=== PATIENT | female | born 1950 | race Caucasian/White ===

== ENCOUNTER 2018-11-14 17:11 | Emergency (ER) | payer MEDICARE ==
[~2018-11-14] VITALS: Ht 162.6 cm; Wt 83.9 kg
--- OUTSIDE RECORDS SUMMARY | 2018-11-14 17:14 | XMS REPORT | Summary of Care ---
Author Author Zach Rubio, Gre[facility] Organization Unknown Address Unknown Phone Unavailable Care Team Providers Care Shirt Trimmer Name Role Phone EVER NUNN M.D. Unavailable Unavailable REYMUNDO DAVE, FRANCESCO SIMMS Unavailable Unavailable EDOUARD ARREDONDO, EVER Unavailable Unavailable Unavailable Unavailable Functional Status Name Dates Details Functional status health issues are not documented Status: Name Dates Details Cognitive status health issues are not documented Status: Problems Name Dates Details Intractable migraine with aura with status migrainosus (346.03, G43.111) Status: Active Classic migraine with aura (346.00, G43.109) Status: Active Medications Name Dates Details SUMAtriptan Succinate 50 MG Oral Tablet TAKE 1 TABLET Twice daily 2-4 hours apart as needed for migraine Quantity: 9 EVER NUNN M.D. * Start : 31-Jul-2016 Active Topiramate 25 MG Oral Tablet TAKE 1 TABLET Daily for 2 weeks then 1 pill twice a day. * Quantity: 180 Refills: 3 EVER NUNN M.D. * Start : 30-Aug-2018 Active Albuterol 90 MCG/ACT AERS INHALE 1 TO 2 PUFFS EVERY 4 TO 6 HOURS NEEDED AND DIRECTED. * Refills: 0 Active Calcium 600 MG Oral Tablet TAKE 1 TABLET DAILY. * Refills: 0 Active Cyanocobalamin 1000 MCG/ML Injection Solution 1ML INTRAMUSCULARLY DAILY X5 DAYS, THEN ONCE EVERY MONTH * Quantity: 10 Refills: 5 Active Garlic CAPS * Refills: 0 Active Levothyroxine Sodium 75 MCG Oral Tablet * Refills: 0 Active Levothyroxine Sodium 75 MCG Oral Tablet TAKE 1 TABLET DAILY. * Refills: 0 Active Propranolol HCl - 40 MG Oral Tablet TAKES TWO TABLET DAILY * Refills: 0 Active Sertraline HCl - 100 MG Oral Tablet TAKE 1 TABLET BY MOUTH DAILY * Quantity: 30 Refills: 3 Active Simvastatin 20 MG Oral Tablet TAKE 1 TABLET DAILY DIRECTED. * Refills: 0 Active 30 Tablet Bottle LORazepam 1 MG Oral Tablet TAKE 1 TABLET Once 30 minutes prior to MR!, may repeat times 1 if needed for sed ation * Quantity: 2 Refills: 0 EVER NUNN M.D. 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) Status: Resolved Procedures Procedure Dates Details History of Section Completed History of Hysterectomy Completed History of Rotator Cuff Repair Completed History of Bladder Surgery Completed Immunization Name Dates Details Immunizations not documented Family History Name Dates Details Family history of heart murmur (V17.49, Z82.49) Comments: Family History Status: Active Family history of cerebrovascular accident (CVA) (V17.1, Z82.3) Comments: Family History Status: Active Family history of cardiac disorder (V17.49, Z82.49) Comments: Family History Status: Active Name Dates Details Family history of migraine headaches (V17.2, Z82.0) Status: Active Family history of irritable bowel syndrome (V18.59, Z83.79) Status: Active Family history of Status: Active Family history of congestive heart failure (V17.49, Z82.49) Status: Active Name Dates Details Family history of Status: Active Family history of diabetes mellitus (V18.0, Z83.3) Status: Active Family history of Heart problem (429.9, I51.9) Status: Active Name Dates Details Family history of diabetes mellitus (V18.0, Z83.3) Status: Active Family history of Heart problem (429.9, I51.9) Status: Active Name Dates Details Family history of Heart problem (429.9, I51.9) Status: Active Family history of hypertension (V17.49, Z82.49) Status: Active Social History Name Dates Details - Status: Name Dates Details Former smoker Vital Signs Date Test Result Details No Known Vitals to report Results Date Description Value Details Results not documented Plan of Care Name Dates Details Planned Observations Planned Goals not documented Interventions Provided Medication Changes* Topiramate 25 MG Oral Tablet - Renew Instructions Name Dates Details Instructions not documented Encounters Appointment; EVER NUNN M.D. Encounter Diagnosis: Problem not documented On: 28-Dec-2016 12:30 Appointment; EVER NUNN M.D. Encounter Diagnosis: Problem not documented On: 30-Jul-2017 10:30 Appointment; EVER NUNN M.D. Encounter Diagnosis: Problem not documented On: 28-Jan-2018 11:00
[2018-11-14] MEDS ORDERED: MORPHINE SULFATE 2 MG/ML SYR 1ML IV STA (18:09)
[2018-11-14] MEDS ORDERED: KETOROLAC TROMETHAMINE 30 MG/ML VIAL IV STA (18:09)
[2018-11-14] MEDS ORDERED: ONDANSETRON HCL INJ 2MG/ML 2ML 2 MG/ML VIAL IV STA (18:09)
[2018-11-14] MEDS ORDERED: SODIUM CHLORIDE 0.9% 1000ML 1,000 ML IV ONE (18:15)
[2018-11-14 18:29] LABS: BASOPHILS % 0.3 % (0.0-1.0); EOSINOPHILS % 0.1 % (0.0-6.0); LYMPHOCYTES # (AUTO) 1.4 (1.0-3.2); LYMPHOCYTES % 9.6 % (18.0-39.1); MEAN CORPUSCULAR HEMOGLOBIN 29.4 pg (28-32); MONOCYTES # (AUTO) 1.3 (0.2-0.8); MONOCYTES % 9.2 % (4.4-11.3); NEUTROPHILS # (AUTO) 11.4 (2.1-6.9); NEUTROPHILS % 80.1 % (38.7-80.0); PLATELET COUNT 246 x10e3/uL (140-360); RED BLOOD COUNT 4.42 x10e6/uL (3.6-5.1); RED CELL DISTRIBUTION WIDTH 13.6 % (11.7-14.4)
[2018-11-14] MEDS ORDERED: MORPHINE SULFATE INJ 4 MG/ML INJ 1ML IV ONE (18:45)
[2018-11-14] MEDS ORDERED: KETOROLAC TROMETHAMINE 30 MG/ML VIAL IV ONE (18:45)
[2018-11-14] MEDS ORDERED: ONDANSETRON HCL INJ 2MG/ML 2ML 2 MG/ML VIAL IV ONE (18:45)
[2018-11-14 18:49] LABS: ALBUMIN 3.8 g/dL (3.5-5.0); ALBUMIN/GLOBULIN RATIO 1.1 (0.8-2.0); ANION GAP 14.7 mmol/L (8-16); CALCIUM 9.7 mg/dL (8.4-10.2); CREATININE, SERUM 0.95 mg/dL (0.57-1.11); POTASSIUM 3.7 mmol/L (3.5-5.1)
--- NOTE | 2018-11-14 18:57 | Diagnostic Imaging Report ---
[facility]BS BILAT W/CXR - 8 views HISTORY: Pain COMPARISON: None available. FINDINGS: See impression. IMPRESSION: No displaced rib fractures visualized, bilaterally. Right humeral head anchor screws. No visible pneumothorax. Prominent cardiomediastinal silhouette, accentuated by low lung volumes. Minimal left basilar subsegmental atelectasis. Signed by: Dr. All Clemens MD on 11/14/2018 6:54 PM
--- NOTE | 2018-11-14 19:47 | Diagnostic Imaging Report ---
EXAM: CT Chest WITHOUT contrast INDICATION: ^Blunt chest trauma, Left chest pain ^[id number] ^[id number] COMPARISON: Same day x-ray TECHNIQUE: Chest was scanned utilizing a multidetector helical scanner from the lung apex through the level of the adrenal glands without administration of IV contrast. Absence of intravenous contrast decreases sensitivity for detection of lymphadenopathy and vascular pathology. Coronal and sagittal reformations were obtained. Routine protocol was performed. IV CONTRAST: None COMPLICATIONS: None RADIATION DOSE: Total DLP: 561.50 mGy*cm Estimated effective dose: (DLP x 0.014 x size factor) mSv CTDIvol has been reviewed. It is below the limits set by the Radiation Protocol Committee (RPC). FINDINGS: LINES/ TUBES: None. LUNGS AND AIRWAYS: Moderate left lower lobe atelectasis. Mild right base atelectasis. Airways are normal. PLEURA: The pleural spaces are clear. HEART AND MEDIASTINUM: The thyroid gland is normal. No mediastinal, hilar or axillary lymphadenopathy. The heart is normal in size.. There is no pericardial effusion. Mild atherosclerotic calcification of coronary arteries. UPPER ABDOMEN: Small hiatal hernia. BONES: Nondisplaced fracture of the anterior left fifth rib. Right humeral head anchor screws. SOFT TISSUES: Unremarkable. IMPRESSION: Nondisplaced fracture of the anterior left fifth rib. No pneumothorax. Moderate left lower lobe atelectasis. Signed by: Dr. All Clemens MD on 11/14/2018 7:43 PM
[2018-11-14] MEDS ORDERED: TYLENOL WITH C1 EACH PO (20:11)
[2018-11-14] MEDS ORDERED: ULTRAM50 MG PO (20:11)
[2018-11-14] MEDS ORDERED: LIDOPATCH1 EACH TOP (20:11)
[2018-11-14 20:16] VITALS: BP 97/65
== END 2018-11-14 20:25 | disposition home or self-care (01) ==
LOC: ER 17:11
DX: R07.89 Other chest pain (principal); R11.0 Nausea; J90 Pleural effusion, not elsewhere classified; S27.69XA Other injury of pleura, initial encounter; M54.6 Pain in thoracic spine; X50.1XXA Overexertion from prolonged static or awkward postures, initial encounter; Y93.E5 Activity, floor mopping and cleaning; Y93.E9 Activity, other interior property and clothing maintenance; Y92.008 Other place in unspecified non-institutional (private) residence as the place of occurrence of the external cause
CPT/HCPCS: 36415; 71111; 71250; 80053; 85025; 93005; 99284; J1885; J2270; J2405; J7030

== ENCOUNTER 2020-09-10 10:00 | Emergency (ER) | payer MEDICARE ==
[~2020-09-10] VITALS: Ht 162.6 cm; Wt 83.9 kg
[~2020-09-10 10:00] MED LIST: LIDOPATCH1 EACH TOP; TYLENOL WITH C1 EACH PO; ULTRAM50 MG PO
[2020-09-10] MEDS ORDERED: ONDANSETRON HCL INJ 2MG/ML 2ML 2 MG/ML VIAL IV STA (10:04)
[2020-09-10] MEDS ORDERED: MORPHINE SULFATE INJ 4 MG/ML INJ 1ML IV PRN (10:15)
[2020-09-10] MEDS ORDERED: FENTANYL CITRATE/PF 100MCG/2 ML INJ IV ONE (10:15)
[2020-09-10] MEDS ORDERED: HYDROCODON-ACE1 EA12 PO (12:21)
[2020-09-10] MEDS ORDERED: ONDANSETRON ODT4 MG PO (12:21)
[2020-09-10 13:19] VITALS: BP 137/84
== END 2020-09-10 13:23 | disposition home or self-care (01) ==
LOC: ER 10:15
DX: S82.001A Unspecified fracture of right patella, initial encounter for closed fracture (principal); M25.561 Pain in right knee; W01.0XXA Fall on same level from slipping, tripping and stumbling without subsequent striking against object, initial encounter; Y93.01 Activity, walking, marching and hiking; Y92.008 Other place in unspecified non-institutional (private) residence as the place of occurrence of the external cause; I10 Essential (primary) hypertension; E78.5 Hyperlipidemia, unspecified; J44.9 Chronic obstructive pulmonary disease, unspecified; E03.9 Hypothyroidism, unspecified; Z85.048 Personal history of other malignant neoplasm of rectum, rectosigmoid junction, and anus
CPT/HCPCS: 29530; 72170; 73080; 73130; 73552; 73562; 99284; J2405; J3010

== ENCOUNTER → 2021-10-05 | Day surgery (SDC) | payer MEDICARE ==
[2021-10-03 12:23] LABS: BASOPHILS # (AUTO) 0.1 (0.0-0.1); BASOPHILS % 0.7 % (0.0-1.0); EOSINOPHILS # (AUTO) 0.2 (0.0-0.4); EOSINOPHILS % 2.3 % (0.0-6.0); HEMATOCRIT 44.3 % (34.2-44.1); LYMPHOCYTES % 35.6 % (18.0-39.1); MEAN CORPUSCULAR HEMOGLOBIN 30.4 pg (28-32); MEAN CORPUSCULAR HGB CONC 31.6 g/dL (31-35); MEAN CORPUSCULAR VOLUME 96.3 fL (81-99); MONOCYTES # (AUTO) 0.9 (0.2-0.8); MONOCYTES % 10.2 % (4.4-11.3); NEUTROPHILS # (AUTO) 4.2 (2.1-6.9); NEUTROPHILS % 49.8 % (38.7-80.0); PLATELET COUNT 266 x10e3/uL (140-360); RED CELL DISTRIBUTION WIDTH 13.1 % (11.7-14.4)
[2021-10-03 12:41] LABS: ALBUMIN 4.3 g/dL (3.5-5.0); ALBUMIN/GLOBULIN RATIO 1.3 (0.8-2.0); ANION GAP 12.2 mmol/L (8-16); CREATININE, SERUM 0.94 mg/dL (0.57-1.11); POTASSIUM 4.2 mmol/L (3.5-5.1)
[~2021-10-05] MED LIST changes: +BENZONATATE100 MG PO; +FENTANYL CITRATE/PF 100MCG/2 ML INJ ONE; +HYDROCODON-ACE1 EA12 PO; +LEVOTHYROXINE88 MCG PO; +LIDOCAINE HCL 2% LOCAL INJ 5 ML SDV VIAL INJ ONE; +LIPITOR10 MG PO; +MIDAZOLAM HCL 2 MG/2 ML VIAL ONE; +OMEPRAZOLE40 MG PO; +ONDANSETRON ODT4 MG PO; +POVIDONE IODINE 0.05% 0.05 % ML PO ONE; +PROPOFOL IV EMULSION 10 MG/ML 20 ML VIAL ONE; +PROPRANOLOL HCL40 MG PO; +PROVENTIL HFA6.7 GM INH; +SCOPOLAMINE 1.5 MG PATCH ONE; +SERTRALINE HCL100 MG PO; +TOPAMAX100 MG PO
[2021-10-05 10:10] VITALS: BP 127/82
== END | disposition home or self-care (01) ==
LOC: OR 06:30
PROVIDERS: ATTEND Surgery
DX: K62.89 Other specified diseases of anus and rectum (principal); K29.00 Acute gastritis without bleeding; K21.00 Gastro-esophageal reflux disease with esophagitis, without bleeding; K44.9 Diaphragmatic hernia without obstruction or gangrene; K64.8 Other hemorrhoids; E03.9 Hypothyroidism, unspecified; J44.9 Chronic obstructive pulmonary disease, unspecified; I10 Essential (primary) hypertension; E78.5 Hyperlipidemia, unspecified; F32.A Depression, unspecified; Z88.6 Allergy status to analgesic agent; Z01.810 Encounter for preprocedural cardiovascular examination; Z01.812 Encounter for preprocedural laboratory examination; Z01.818 Encounter for other preprocedural examination; Z20.822 Contact with and (suspected) exposure to COVID-19; Z79.899 Other long term (current) drug therapy
CPT/HCPCS: 36415; 43235; 45380; 71046; 80053; 85025; 88305; 93005; J2001; J2250; J2704; J3010; U0002

== ENCOUNTER → 2021-11-16 | Outpatient (CLI) | payer MEDICARE ==
[~2021-11-16] MED LIST changes: -FENTANYL CITRATE/PF 100MCG/2 ML INJ ONE; -LIDOCAINE HCL 2% LOCAL INJ 5 ML SDV VIAL INJ ONE; -MIDAZOLAM HCL 2 MG/2 ML VIAL ONE; -POVIDONE IODINE 0.05% 0.05 % ML PO ONE; -PROPOFOL IV EMULSION 10 MG/ML 20 ML VIAL ONE; -SCOPOLAMINE 1.5 MG PATCH ONE
== END ==
LOC: RAD 13:06
PROVIDERS: ATTEND Internal Medicine
DX: J15.9 Unspecified bacterial pneumonia (principal)
CPT/HCPCS: 71046

== ENCOUNTER → 2022-12-07 | Day surgery (SDC) | payer MEDICARE ==
[2022-12-06 08:45] LABS: BASOPHILS # (AUTO) 0.1 (0.0-0.1); BASOPHILS % 0.7 % (0.0-1.0); EOSINOPHILS # (AUTO) 0.2 (0.0-0.4); EOSINOPHILS % 2.9 % (0.0-6.0); HEMATOCRIT 44.1 % (34.2-44.1); HEMOGLOBIN 13.9 g/dL (12.0-16.0); LYMPHOCYTES # (AUTO) 2.5 (1.0-3.2); LYMPHOCYTES % 36.2 % (18.0-39.1); MEAN CORPUSCULAR HEMOGLOBIN 30.8 pg (28-32); MEAN CORPUSCULAR HGB CONC 31.5 g/dL (31-35); MEAN CORPUSCULAR VOLUME 97.8 fL (81-99); MONOCYTES # (AUTO) 0.6 (0.2-0.8); MONOCYTES % 8.7 % (4.4-11.3); NEUTROPHILS # (AUTO) 3.5 (2.1-6.9); NEUTROPHILS % 50.9 % (38.7-80.0); PLATELET COUNT 240 x10e3/uL (140-360); RED BLOOD COUNT 4.51 x10e6/uL (3.6-5.1)
[2022-12-06 12:19] LABS: CALCIUM 8.9 mg/dL (8.4-10.2); CREATININE, SERUM 1.24 mg/dL (0.57-1.11)
[~2022-12-07] MED LIST changes: +ACETAMINOPHEN 1000 MG/100 ML 100 ML IV ONE; +BUPIVACAINE 0.5%/EPI 30 ML SDV INJ ONE; +BUPIVACAINE HCL 0.5% INJ 30 ML VIAL INJ ONE; +CALCIUM CARBON500 MG PO; +CEFAZOLIN SODIUM 2 GM ONE; +CELEBREX100 MG PO; +DEXAMETHASONE SOD PHOS INJ 4 MG/ML SDV ONE; +DULCOLAX PO; +EPHEDRINE SULFATE INJ 50 MG/ML VIAL ONE; +FAMOTIDINE 20 MG/2 ML VIAL IV ONE; +FENTANYL CITRATE/PF 100MCG/2 ML INJ ONE; +GLUCOSAMINE1000 MG PO; +LACTATED RINGER'S 1,000 ML ONE; +LANSOPRAZOLE30 MG PO; +LIDOCAINE HCL 1% LOCAL INJ 20 ML VIAL ONE; +LIDOCAINE HCL 2% LOCAL INJ 5 ML SDV VIAL INJ ONE; +MENOPAUSE SUPPORT PO; +NEURIVA ORIGIN1 EACH PO; +NURTEC ODT75 MG PO; +ONDANSETRON HCL INJ 2MG/ML 2ML 2 MG/ML VIAL ONE; +POVIDONE IODINE 0.05% 0.05 % ML PO ONE; +PROPOFOL IV EMULSION 10 MG/ML 20 ML VIAL ONE; +SCOPOLAMINE 1 MG PATCH ONE; +SEVOFLURANE INHAL SOLN 250 ML PEN BTL ONE; +TRAMADOL HCL 50 MG TAB ONE; +ULTRAM 50MG50 MG PO; +VIT B12 PO
[2022-12-07 09:24] VITALS: TEMP 98.2
[2022-12-07 11:00] VITALS: BP 106/65; PULSE 60; RESP 16; O2SAT 95
== END | disposition home or self-care (01) ==
LOC: OR 06:27
PROVIDERS: ATTEND Surgery
DX: L72.12 Trichodermal cyst (principal); J44.9 Chronic obstructive pulmonary disease, unspecified; G43.909 Migraine, unspecified, not intractable, without status migrainosus; K44.9 Diaphragmatic hernia without obstruction or gangrene; E03.9 Hypothyroidism, unspecified; F41.9 Anxiety disorder, unspecified; F32.A Depression, unspecified; F17.200 Nicotine dependence, unspecified, uncomplicated; Z88.6 Allergy status to analgesic agent; Z01.810 Encounter for preprocedural cardiovascular examination; Z01.812 Encounter for preprocedural laboratory examination; Z01.818 Encounter for other preprocedural examination; Z79.899 Other long term (current) drug therapy; Z68.30 Body mass index [BMI] 30.0-30.9, adult
CPT/HCPCS: 36415; 46922; 71046; 80048; 85025; 88304; 93005; J0131; J1100; J2001; J2405; J2704; J3010; J7121